=== PATIENT | female | born 1965 | race Caucasian/White ===

== ENCOUNTER 2017-03-07 09:40 | Emergency (ER) | payer MEDICAID, OTHER ==
--- NOTE | 2017-03-07 10:22 | EDM.PDOC ---
ED HPI GENERAL MEDICAL PROBLEM - General Chief Complaint: Respiratory Problem Stated Complaint: COUGH AND CONGESTION Time Seen by Provider: 03/07/17 09:59 Source of Information: Reports: Patient History Limitations: Reports: No Limitations - History of Present Illness INITIAL COMMENTS - FREE TEXT/NARRATIVE: History of present illness: []Patient has had a sore throat and cough for 3 days. He went to her primary care physician gave her steroids, cough syndrome sleeping pill which have not helped her. She denies any fevers states she has chills, sore throat, cough, runny nose body aches. Review of systems: As per history of present illness and below otherwise all systems reviewed and negative. Past medical history: As per history of present illness and as reviewed below otherwise noncontributory. Surgical history: As per history of present illness and as reviewed below otherwise noncontributory. Social history: No reported history of drug or alcohol abuse. Family history: As per history of present illness and as reviewed below otherwise noncontributory. Physical exam: General: Well developed, well nourished in NAD HEENT: Atraumatic, normocephalic, pupils reactive, negative for conjunctival pallor or scleral icterus, mucous membranes moist, throat clear, neck supple, nontender, trachea midline. Lungs: Clear to auscultation, breath sounds equal bilaterally, chest nontender. Heart: S1S2, regular, negative for clicks, rubs, or JVD. Abdomen: Soft, nondistended, nontender. Negative for masses or hepatosplenomegaly. Negative for costovertebral tenderness. Pelvis: Stable nontender. Genitourinary: Deferred. Rectal: Deferred. Extremities: Atraumatic, negative for cords or calf pain. Neurovascular unremarkable. Neuro: Awake, alert, oriented. Cranial nerves II through XII unremarkable. Cerebellum unremarkable. Motor and sensory unremarkable throughout. Exam nonfocal. Diagnostics: []Influenza, strep and chest x-ray negative Therapeutics: [] Impression: []Viral syndrome, URI Plan: []Take NyQuil at night for symptoms and albuterol inhaler as needed for shortness of breath. Definitive disposition and diagnosis as appropriate pending reevaluation and review of above. Right Upper Headache Pain Score (Numeric/FACES): 9 - Related Data Allergies Allergy/AdvReac Type Severity Reaction Status Date / Time No Known Allergies Allergy Verified 03/07/17 10:01 Home Meds: Home Meds Albuterol Sulfate [Ventolin Hfa] 8 gm IH Q4HR PRN #1 [email or web address] 03/07/17 [Rx] Past Medical History HEENT History: Reports: None Cardiovascular History: Reports: None Respiratory History: Reports: None Gastrointestinal History: Reports: None Genitourinary History: Reports: None [employer] PROFESS[employer] History: Reports: None Musculoskeletal History: Reports: None Neurological History: Reports: None Psychiatric History: Reports: None Endocrine/Metabolic History: Reports: None Hematologic History: Reports: None Immunologic History: Reports: None Oncologic (Cancer) History: Reports: None - Infectious Disease History Infectious Disease History: Reports: None - Past Surgical History Head Surgeries/Procedures: Reports: None Social & Family History - Tobacco Use Smoking Status *Q: Never Smoker Second Hand Smoke Exposure: No - Caffeine Use Caffeine Use: Reports: None - Recreational Drug Use Recreational Drug Use: No ED ROS GENERAL - Review of Systems Review Of Systems: See Below ED EXAM, GENERAL - Physical Exam Exam: See Below (See history of present illness) Course - Vital Signs Last Recorded V/S: Last Vital Signs Temp 36.4 C 03/07/17 09:56 Pulse 90 03/07/17 09:56 Resp 22 H 03/07/17 09:56 BP 135/86 03/07/17 09:56 Pulse Ox 94 L 03/07/17 09:56 - Orders/Labs/Meds Orders: Active Orders 24 hr Category Date Time Status Chest 2V [CR] Stat Exams 03/07/17 10:08 Taken CULTURE STREP A CONFIRMATION [RM] Stat Lab 03/07/17 10:40 Results STREP SCRN A RAPID W CULT CONF [RM] Stat Lab 03/07/17 10:40 Results Departure - Departure Time of Disposition: 11:08 Disposition: Home, Self-Care 01 Condition: Good Clinical Impression: Upper respiratory infection, viral - Discharge Information Prescriptions: Albuterol Sulfate [Ventolin Hfa] 8 gm IH Q4HR PRN #1 [email or web address] PRN Reason: Shortness Of Breath Referrals: PCP,None [Primary Care Provider] - Forms: ED Department Discharge Additional Instructions: The following information is given to patients seen in the emergency department who are being discharged to home. This information is to outline your options for follow-up care. We provide all patients seen in our emergency department with a follow-up referral. The need for follow-up, as well as the timing and circumstances, are variable depending upon the specifics of your emergency department visit. If you don't have a primary care physician on staff, we will provide you with a referral. We always advise you to contact your personal physician following an emergency department visit to inform them of the circumstance of the visit and for follow-up with them and/or the need for any referrals to a consulting specialist. The emergency department will also refer you to a specialist when appropriate. This referral assures that you have the opportunity for follow-up care with a specialist. All of these measure are taken in an effort to provide you with optimal care, which includes your follow-up. Under all circumstances we always encourage you to contact your private physician who remains a resource for coordinating your care. When calling for follow-up care, please make the office aware that this follow-up is from your recent emergency room visit. If for any reason you are refused follow-up, please contact the [facility] Emergency Department at and asked to speak to the emergency department charge nurse. Albuterol inhaler 2 puffs every 4 hours as needed for shortness of breath, NyQuil at night for symptoms. Follow-up with PMD [facility] [address] [place] [id number] - My Orders Last 24 Hours: My Active Orders 03/07/17 10:08 Chest 2V [CR] Stat 03/07/17 10:40 CULTURE STREP A CONFIRMATION [RM] Stat STREP SCRN A RAPID W CULT CONF [RM] Stat - Assessment/Plan Last 24 Hours: My Active Orders 03/07/17 10:08 Chest 2V [CR] Stat 03/07/17 10:40 CULTURE STREP A CONFIRMATION [RM] Stat STREP SCRN A RAPID W CULT CONF [RM] Stat
--- NOTE | 2017-03-08 17:32 | CR ---
EXAM DATE: 03/07/17 PATIENT'S AGE: 51 Patient: JUVENCIO AREVALO Facility: [place], [place] Site . Site : 1965 Study: XRay Chest [id number]/22/2017 10:24:49 AM Ordering Physician: Donnie Mckeon Final Report: INDICATION: Pain. Shortness of breath. Technique: PA and lateral chest x-ray. Findings: Heart is mildly enlarged. Surgical willian projected in the lower neck bilaterally. Mild interstitial prominence in the lungs nonspecific. Mild elevation right hemidiaphragm. No focal infiltrate or consolidation either lung. Chest otherwise negative without acute disease. Dictated by Logan Ritchie MD @ Mar 07 2017 10:31AM (Electronic Signature) Report Signed by Proxy. [email or web address]
== END 2017-03-07 11:20 | disposition home or self-care (01) ==
LOC: MW.ED 09:40
DX: J06.9 Acute upper respiratory infection, unspecified (principal); B34.9 Viral infection, unspecified
CPT/HCPCS: 71020; 71020-26; 87081; 87804; 87880; 99283